=== PATIENT | female | born 1950 | race Caucasian/White ===

== ENCOUNTER 2023-06-28 06:15 | Day surgery (SDC) | payer OTHER ==
[2023-06-27 09:50] LABS: Absolute Lymphocytes (CBC) 1.3 K/uL (0.7-4.9); Hematocrit 36.3 % (36.0-45.0); MCV 90.3 fL (80-100); MPV 9.6 fL (7.6-11.3); Platelets 233 thou/uL (152-406); RBC Red Blood Cell Count 4.02 M/uL (3.86-4.86)
[2023-06-27 09:53] LABS: Protime INR 1.04
[2023-06-27 09:59] LABS: Potassium 4.1 mEq/L (3.5-5.1)
--- NOTE | 2023-06-27 10:04 | RAD REPORT ---
EXAM DESCRIPTION: RAD - Chest Pa And Lat (2 Views) - 06/27/2023 9:55 am CLINICAL HISTORY: pre op pending heart catheterization Chest pain. COMPARISON: Chest Pa And Lat (2 Views) dated 04/28/2022; Chest Pa And Lat (2 Views) dated 10/19/2021; C hest Pa And Lat (2 Views) dated 12/05/2018; Chest Pa And Lat (2 Views) dated 02/06/2018 TECHNIQUE: PA and lateral views of the chest were obtained. FINDINGS: The lungs are hyperexpanded compatible with COPD. The heart is upper limit of normal in si ze. No fracture or aggressive bony process. IMPRESSION: COPD without acute process identified. The USPSTF recommends annual screening for lung cancer with low-dose CT (LDCT) in adults aged 50 to 8 0 years who have a 20 pack-year smoking history and currently smoke or have quit within the past 15 y ears.
--- NOTE | 2023-06-27 18:03 | EKG ---
Test Date: 2023-06-27 Test Time: 09:23:28 Sample Sewer: CHAPARRITA MEASUREMENT RESULTS: Intervals: Rate: 69 LA: 174 QRSD: 86 QT: 428 QTc: 458 [place]: P: 63 LA: 174 QRS: 53 T: 76 INTERPRETIVE STATEMENTS: Normal sinus rhythm Normal ECG Compared to ECG 10/18/2012 02:50:52 No significant changes Electronically Signed On 06-27-23 18:02:52 CDT by Domingo Brian
[2023-06-28] MEDS ORDERED: HEPA 1000U/500MLS 2,000 UNIT/1,000 ML BAG IV ONE (06:57)
[2023-06-28] MEDS ORDERED: LIDOCAINE 1% 20 ML MDV ONE (06:58)
[2023-06-28] MEDS ORDERED: FENTANYL CITR 100 MCG/2 ML ONE (06:58)
[2023-06-28] MEDS ORDERED: MIDAZOLAM HCL 2 MG/2 ML INJ ONE (06:58)
[2023-06-28] MEDS ORDERED: HEPARIN 5000 UNIT/ML 1 ML VIAL ONE (06:58)
[2023-06-28] MEDS ORDERED: VERAPAMIL HCL 10 MG/4 ML VIAL IV ONE (06:59)
[2023-06-28] MEDS ORDERED: HEPARIN 10,000 UNIT/10 ML VIAL IV ONE (06:59)
[2023-06-28] MEDS ORDERED: NITROGLYCERIN/D5W 50 MG/250 ML BTL IV ONE (07:00)
[2023-06-28] MEDS ORDERED: NA CHLORIDE 0.9% 0 ML ONE (07:01)
[2023-06-28] MEDS ORDERED: NA CHLORIDE 0.9% 500 ML ONE (07:32)
--- NOTE | 2023-06-28 09:44 | OP ---
Date of Procedure: 06/28/2023 Surgeon: JUANA GLYNN Procedures Performed: 1.Selective coronary angiogram. 2.Left heart catheterization. Indication: Chest pain with normal stress test. Access: Right radial artery 6-C[place]ican closed with TR band. Complications: None. Bleeding: Less than 20 mL. Anesthesia: Total sedation time was 30 minutes. Description Of Procedure: After risks, benefits, and alternatives were explained, patient agreed to procedure and signed informal consent. Patient was brought into cardiac catheterization laboratory, prepped and draped in the usual sterile fashion. Then, I accessed right radial artery using [employer] micropuncture kit, placed 6-[place] slender sheath and took 5-[place] 4.0 catheter into the aor tic root, engaged the left main and then right coronary artery, took standard views and then a cathet er was pushed over the wire into the LV, measured the LVEDP. Pullback did not record any gradient an d then I removed the catheter and the sheath, placed TR band with good hemostasis. Findings: 1.Left main is large with ostial 20% stenosis with a very large artery. 2.LAD: Normal proximal segment. In the mid segment after diagonal 2, there is a 30% stenosis. Foc al diagonal branches are normal. Rest of LAD is normal. 3.Left circumflex is moderate size with mid to distal 50% stenosis. OM branch is normal. 4.RCA, very large and dominant with proximal 30%. 5.Normal LVEDP at 6 mmHg. Conclusion: 1.Mild nonobstructive coronary artery disease. 2.Normal LVEDP. Recommendation: Medical management. /JESSICA Voice ID: [id number] Report ID: [id number]
[2023-06-28 10:11] VITALS: O2SAT 100
[2023-06-28 10:54] VITALS: BP 116/50
== END 2023-06-28 10:30 | disposition home or self-care (01) ==
LOC: CCL 06:15
PROVIDERS: ATTEND Internal Medicine
DX: I25.10 Atherosclerotic heart disease of native coronary artery without angina pectoris (principal); I34.0 Nonrheumatic mitral (valve) insufficiency; I47.10 Supraventricular tachycardia, unspecified; I10 Essential (primary) hypertension; E78.2 Mixed hyperlipidemia; E11.9 Type 2 diabetes mellitus without complications; K21.9 Gastro-esophageal reflux disease without esophagitis; Z79.899 Other long term (current) drug therapy; Z01.810 Encounter for preprocedural cardiovascular examination; Z88.3 Allergy status to other anti-infective agents; Z82.49 Family history of ischemic heart disease and other diseases of the circulatory system
CPT/HCPCS: 93005; 85025; 80048; 36415; 85610; 82947; 85730; 71046; 93458; 76937; C1893; Q9966; J1644; J2001; J2250; J3010; J7040

== ENCOUNTER 2024-09-09 11:00 | Day surgery (SDC) | payer OTHER ==
--- NOTE | 2024-09-04 15:52 | RAD REPORT ---
EXAMINATION: TWO VIEW CHEST XR CLINICAL INDICATION: pre-op pending heart catheterization TECHNIQUE: 2 views of the chest was performed. COMPARISON: 06/27/2023 FINDINGS: The lungs are mildly hyperexpanded but clear. The heart is normal in size. No displaced fractures monique dent. Cervical hardware plate. IMPRESSION: Mild COPD.
[2024-09-04 16:16] LABS: Anion Gap 10.1 mEq/L (5.0-15.0); Potassium 4.1 mEq/L (3.5-5.1)
[2024-09-04 16:24] LABS: Absolute Lymphocytes (CBC) 0.8 K/uL (0.7-4.9); Absolute Monocytes 0.4 K/uL (0.1-1.3); Absolute Neutrophil 9.7 K/uL (1.8-8.0); Basophils % 0.1 % (0-1.3); Hematocrit 37.6 % (36.0-45.0); Hemoglobin 12.7 g/dL (12.0-15.0); Lymphocytes % 7.2 % (15.3-44.8); MCH 30.3 pg (27.0-35.0); MCHC 33.8 g/dL (32.0-36.0); MCV 89.7 fL (80-100); MPV 8.8 fL (7.6-11.3); Monocytes % 3.7 % (3.3-12.3); Nucleated Red Blood Cells % 0.1 % (0-0); Platelets 359 thou/uL (152-406); RBC Red Blood Cell Count 4.19 M/uL (3.86-4.86); Red Cell Distribution Width 15.7 % (12.1-15.2)
[2024-09-04 16:44] LABS: PT Prothrombin Time 11.4 SECONDS (9.4-12.5); PTT, Activated Partial Thromb 30.6 SECONDS (24.3-36.9); Protime INR 1.02
--- NOTE | 2024-09-08 10:55 | EKG ---
Test Date: 2024-09-04 Test Time: 16:20:24 Retail Pharmacy Merchandiser: CHAPARRITA MEASUREMENT RESULTS: Intervals: Rate: 73 CO: 168 QRSD: 86 QT: 398 QTc: 438 [place]: P: 56 CO: 168 QRS: 31 T: 75 INTERPRETIVE STATEMENTS: Normal sinus rhythm Low voltage QRS Borderline ECG Compared to ECG 06/27/2023 09:23:28 Low QRS voltage now present Electronically Signed On 09-08-24 10:51:05 SCHOOL AGE PROGRAM TEACHER by Gordo Gould
[2024-09-09] MEDS ORDERED: NA CHLORIDE 0.9% 500 ML ONE (13:07)
[2024-09-09] MEDS ORDERED: HEPA 1000U/500MLS 2,000 UNIT/1,000 ML BAG IV ONE (13:36)
[2024-09-09] MEDS ORDERED: LIDOCAINE 1% 20 ML MDV ONE (13:36)
[2024-09-09] MEDS ORDERED: FENTANYL CITR 100 MCG/2 ML ONE (13:37)
[2024-09-09] MEDS ORDERED: TICAGRELOR 90 MG TABLET PO ONE ×2 (13:37→13:49)
[2024-09-09] MEDS ORDERED: MIDAZOLAM HCL 2 MG/2 ML INJ ONE (13:37)
[2024-09-09] MEDS ORDERED: CLOPIDOGREL 75 MG TABLET ONE (13:38)
[2024-09-09] MEDS ORDERED: ATROPINE SULF 1 MG/10 ML SYR IV ONE (13:38)
[2024-09-09] MEDS ORDERED: ASPIRIN 325 MG TAB ONE (13:38)
[2024-09-09] MEDS ORDERED: VERAPAMIL HCL 10 MG/4 ML VIAL IV ONE (13:39)
[2024-09-09] MEDS ORDERED: NITROGLYCERIN/D5W 50 MG/250 ML BTL IV ONE (13:39)
[2024-09-09] MEDS ORDERED: HEPARIN 5000 UNIT/ML 1 ML VIAL ONE (13:41)
--- NOTE | 2024-09-10 01:56 | OP ---
Date of Procedure: 09/09/2024 Surgeon: JUANA GLYNN Procedures Performed: 1.Selective coronary angiogram. 2.Left heart catheterization. Indication: Chest pain with abnormal stress test and unstable angina. Access: Right radial artery 6-Salvadorean, closed with TR band. Complications: None. Bleeding: Less than 50 mL. Anesthesia: Total sedation time is 45 minutes, used fentanyl and Versed. Description Of Procedure: After risks, benefits, and alternatives were explained, the patient agreed to procedure and signed informed consent. The patient was brought into cardiac catheterization [facility], prepped and draped in usual sterile fashion. Then, I accessed right radial artery using pedi atric micropuncture kit and placed 6-[place]orean Slender sheath and took a 5-[place] 4 catheter over J-wire into the aortic root and crossed the aortic valve, measured the LVEDP. Pullback did not recor d any gradient. Then, I engaged left main, took standard views and then the RCA, took standard views , and removed the catheter and the sheath, placed TR band with good hemostasis. Findings: 1.Left main, large and normal. 2.LAD, large vessel, proximal 30%, mid 30% stenosis. Distally, there is focal 30% stenosis. Diagon al branch has luminal irregularities. 3.Left circumflex, moderate-sized vessel with proximal diffuse 30% stenosis and then luminal irregul arities of the OM. 4.RCA: Large and dominant proximal 30% and distal 30% stenosis. 5.LVEDP is normal at 10 mmHg. Conclusion: Moderate coronary artery disease. Recommendation: Medical management. SR/MODL Voice ID: [id number] Report ID: [id number]
[2024-09-12 01:18] VITALS: BP 134/62; TEMP 97.5; O2SAT 98
== END 2024-09-09 16:25 | disposition home or self-care (01) ==
LOC: CCL 11:00
PROVIDERS: ATTEND Internal Medicine
DX: I25.110 Atherosclerotic heart disease of native coronary artery with unstable angina pectoris (principal); I34.0 Nonrheumatic mitral (valve) insufficiency; I47.10 Supraventricular tachycardia, unspecified; I10 Essential (primary) hypertension; E78.2 Mixed hyperlipidemia; E11.9 Type 2 diabetes mellitus without complications; Z79.84 Long term (current) use of oral hypoglycemic drugs; Z79.85 Long-term (current) use of injectable non-insulin antidiabetic drugs; Z79.899 Other long term (current) drug therapy; Z88.1 Allergy status to other antibiotic agents; Z82.49 Family history of ischemic heart disease and other diseases of the circulatory system
CPT/HCPCS: 93005; 85025; 80048; 36415; 85610; 82947; 85730; 71046; 93458; 76937; C1893; Q9966; J1644; J2003; J2250; J3010; J7040; 99152; 99153; J0461

== ENCOUNTER 2025-05-29 08:29 | Day surgery (SDC) | payer OTHER ==
[2025-05-18 15:07] LABS: Absolute Lymphocytes (CBC) 2.1 K/uL (0.7-4.9); Hematocrit 37.0 % (36.0-45.0); Hemoglobin 12.8 g/dL (12.0-15.0); MCH 31.7 pg (27.0-35.0); MCHC 34.5 g/dL (32.0-36.0); MCV 91.7 fL (80-100); MPV 9.0 fL (7.6-11.3); Nucleated RBC Absolute Count 0.0 (0-0); Nucleated Red Blood Cells % 0.1 % (0-0); RBC Red Blood Cell Count 4.03 M/uL (3.86-4.86); White Blood Count 8.30 thou/uL (4.3-10.9)
[2025-05-18 15:32] LABS: Anion Gap 10.6 mEq/L (5.0-15.0); BUN Blood Urea Nitrogen 16.0 mg/dL (7-18); Glucose Level 82.0 mg/dL (74-106); Potassium 3.6 mEq/L (3.5-5.1)
[2025-05-29] MEDS ORDERED: NA CHLORIDE 0.9% 1,000 ML ONE (09:09)
[2025-05-29] MEDS ORDERED: LIDOCAINE 1% MPF 5 ML VIAL ONE (09:14)
[2025-05-29] MEDS ORDERED: ROCURONIUM 50 MG/5 ML VIAL IV ONE (09:14)
[2025-05-29] MEDS ORDERED: FENTANYL CITR 100 MCG/2 ML ONE ×2 (09:14→11:18)
[2025-05-29] MEDS ORDERED: ONDANSETRON 4 MG/2 ML VIAL ONE (09:14)
[2025-05-29] MEDS ORDERED: MIDAZOLAM HCL 2 MG/2 ML INJ ONE (09:15)
[2025-05-29] MEDS: OXYMETAZOLINE HCL 0.05% 30ML NAS ONE (09:35)
[2025-05-29] MEDS ORDERED: OXYMETAZOLINE HCL 0.05% 30ML NAS ONE (09:37)
[2025-05-29] MEDS ORDERED: LIDOCAINE HCL/EPINEPHRINE 20 ML MDV ONE (09:38)
[2025-05-29] MEDS ORDERED: GLYCOPYRROLATE 0.2 MG/ML SYR ONE ×2 (11:22→11:33)
[2025-05-29] MEDS ORDERED: EPHEDRINE SULF 50 MG/ML VIAL ONE (11:26)
[2025-05-29] MEDS ORDERED: Mastisol Adhesive Liq ONE (11:30)
[2025-05-29] MEDS ORDERED: NEOSTIGMINE 1 MG/ML -10 ML VIAL ONE (11:33)
--- NOTE | 2025-05-29 12:00 | P.OP ---
Paper Bag Making Machinist: NONE,NONE Preoperative diagnosis: Nasal congestion, turbinate hypertrophy, int static nasal valve collapse Postoperative diagnosis: Same Primary procedure: Destruction nasal lesion /septal swell body Secondary procedure: Inferior turbinate reduction by superficial ablation /radiofrequency Other procedure(s): Repair of nasal valve with implant and remodeling Anesthesia: General Via endotracheal tube Estimated blood loss: Minimal, less than 5 mm Specimen: None Findings: Yellow crusting of inferior turbinates prior to procedure Operative Technique: Patient was brought to the operating room placed under general anesthesia via oral endotracheal tube. The head of bed was turned 90 degrees. The nasal cavity was inspected using a headlight and nasal speculum. The nasal hairs were trimmed. Patient was noted to have significant crusting and yellow mucus overlying the bilateral inferior turbinates which was judiciously debrided. The patient was noted to have enlargement of the right and the left septal swell body creating obstruction and congestion within the nasal cavity. The inferior turbinates were significantly decongested by preoperative application of oxymetazoline. The septum was midline. The nasal valve was narrow. The [employer] radiofrequency handpiece was used to perform destruction of the septal swell body. The tip was coated with a small amount of ultrasound gel and placed along the mucosa under direct visualization via headlight. The handpiece was activated for 15 seconds and 3 additional areas spots along the height and depth of the septal swell body was treated. A similar procedure was performed on the contralateral side with activation of the handpiece for a total of 4 cycles to allow decrease in the thickness and overall size of the septal swell body. Attention was then turned to the inferior turbinates. The right inferior turbinate was treated along its height and depth using the radiofrequency handpiece in order to perform a superficial ablation. At each site, the handpiece was coated with a thin layer of ultrasound gel and positioned securely against the mucosa. The handpiece was then activated for 15 seconds for each cycle. Approximately 6 cycles were performed on the right middle turbinate. A similar procedure was performed on the contralateral side.The left inferior turbinate was treated along its height and depth using the radiofrequency handpiece in order to perform a superficial ablation. At each site, the handpiece was coated with a thin layer of ultrasound gel and positioned securely against the mucosa. The handpiece was then activated for 15 seconds for each cycle. Approximately 6 cycles were performed on the left middle turbinate. Attention was then turned to the nasal valve region. Since the patient was under general anesthetic, no topical or injection of local anesthetic was necessary. The handpiece was coated with a thin layer of ultrasound and positioned at the superior aspect of the right internal nasal valve region. The tissues were distracted laterally and superiorly. The handpiece was activated for a full 18 seconds cycle and the distraction was continued during the 12- second cooling cycle. The tip of the device was then positioned slightly inferiorly and the cycle was repeated. A total of 4 locations along the length of the right internal nasal valve were treated. Attention was then turned to the contralateral side. The handpiece was coated with a thin layer of ultrasound and positioned at the superior aspect of the left internal nasal valve region. The tissues were distracted laterally and superiorly. The handpiece was activated for a full 18 seconds cycle and the distraction was continued during the 12-second cooling cycle. The tip of the device was then positioned slightly inferiorly and the cycle was repeated. A total of 4 locations along the length of the left internal nasal valve were treated. The external nose was then examined. The patient was noted to have long nasal bones on palpation. The measuring kit provided with the Latera implant was used to ailyn the planned position of the implant. The inferior tip was placed at the edge of the nasal alar crease and the measuring device was oriented parallel to the nasal dorsum. The forked end was well supported by the nasal bone. The right and left sides of the nose were marked with a surgical marker in this manner. The left side was addressed first. The Latera implant was loaded into the insertion device provided by the boat builder. A double prong hook was used to stabilize and retract the nasal ala. The insertion device was positioned at the junction of the nasal hair within the left vestibule and inserted approximately 2 to 3 mm into the soft tissue. The direction of retraction and insertion was then rotated 90 degrees and the barrel reamer was carefully advanced into the soft tissues. The inferior border of the nasal bone was palpated using the barrel reamer and the barrel reamer was passed just superficial to the nasal bone until the tip of the barrel reamer was palpable under the superior ailyn that had been placed previously. Ensuring correct orientation of the barrel reamer, the device was activated and external pressure was applied to the external nose to stabilize the implant. The insertion device was then slowly and carefully withdrawn and the nose was palpated and visualized well ensuring the implant was in proper position. A similar procedure was performed on the right side. The Latera implant was loaded into the insertion device provided by the boat builder. A double prong hook was used to stabilize and retract the nasal ala. The insertion device was positioned at the junction of the nasal hair within the right vestibule and inserted approximately 2 to 3 mm into the soft tissue. The direction of retraction and insertion was then rotated 90 degrees and the barrel reamer was carefu lly advanced into the soft tissues. The inferior border of the nasal bone was palpated using the barrel reamer and the barrel reamer was passed just superficial to the nasal bone until the tip of the barrel reamer was palpable under the superior ailyn that had been placed previously. Ensuring correct orientation of the barrel reamer, the device was activated and external pressure was applied to the external nose to stabilize the implant. The insertion device was then slowly and carefully withdrawn and the nose was palpated and visualized well ensuring the implant was in proper position. Mild oozing was noted from the insertion site and direct pressure was applied for several minutes until hemostasis was obtained. The procedure was then concluded and the patient was returned to care of anesthesia for awakening and extubation and transition to the recovery room. Complications: None Implants: Latera, left and right Fluids & blood products: See anesthesia record Transferred to: Recovery Room Condition: Good
[2025-05-29] MEDS: HYDROMORPHONE HCL 1 MG/ML INJ ONE (12:11)
[2025-05-29] MEDS ORDERED: ACETAMINOPHEN 325 MG TABLET ONE (13:05)
[2025-05-29 14:03] VITALS: BP 162/76; O2SAT 98
== END 2025-05-29 13:40 | disposition home or self-care (01) ==
LOC: OR 08:29
PROVIDERS: ATTEND Otolaryngology
PROC: 09QK8ZZ Repair Nasal Mucosa and Soft Tissue, Via Natural or Artificial Opening Endoscopic (ICD-10-PCS; 2025-05-29)
PROC: 09UK8JZ Supplement Nasal Mucosa and Soft Tissue with Synthetic Substitute, Via Natural or Artificial Opening Endoscopic (ICD-10-PCS; 2025-05-29)
PROC: 095P8ZZ Destruction of Accessory Sinus, Via Natural or Artificial Opening Endoscopic (ICD-10-PCS; 2025-05-29)
PROC: 095L8ZZ Destruction of Nasal Turbinate, Via Natural or Artificial Opening Endoscopic (ICD-10-PCS; principal; 2025-05-29 10:00)
DX: J34.820 Internal nasal valve collapse (principal); R09.81 Nasal congestion; J34.3 Hypertrophy of nasal turbinates
CPT/HCPCS: 30801; 30117; 30468; 93005; 85025; 80048; 36415; 82947 ×2; J2704; J2710; J2003; J2250; J3010 ×2; J1100; J1171; J2405; J7030; C1889